=== PATIENT | male | born 1970 | race Caucasian/White ===

== ENCOUNTER 2018-04-18 11:47 | Emergency (ER) | payer OTHER ==
[~2018-04-18] VITALS: Ht 185.4 cm; Wt 90.7 kg
--- NOTE | 2018-04-18 11:54 | ED UPPER/LOWER EXTREMITY COMPL ---
History of Present Illness General Chief Complaint: Lower Extremity Problems Stated Complaint: L KNEE PAIN W/ SWELLING Source: patient Exam Limitations: no limitations Vital Signs & Intake/Output Vital Signs & Intake/Output Vital Signs Date Time Temp Pulse Resp B/P B/P Pulse O2 O2 Flow FiO2 Mean Ox Delivery Rate 04/18 1339 98.6 80 18 164/80 100 04/18 1152 97.6 96 20 151/95 98 Room Air Allergies Coded Allergies: No Known Allergies (04/18/18) Reconcile Medications Meloxicam (Mobic) 15 MG TABLET 1 TAB PO DAILY PAIN Prednisone (Deltasone) 20 MG TABLET 1 TAB PO DAILY BURSITIS Triage Note: STATES HE WOKE UP ON WEDNESDAY WITH SWOLLEN LEFT KNEE. PT DENIES INJURY. DENIES WORKING OUTSIDE OR TICK BITE. 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 yes Onset: Abrupt Duration: day(s):, constant Timing: recent history Severity: moderate, severe Pain/Injury Location: Left: Knee. Method of Injury: unknown No Modifying Factors: none HPI: 48-year-old male comes into the emergency room for evaluation of left knee pain and swelling. Patient reports that he has had it for couple days. Denies any trauma that he can think of. Comes in for further evaluation. Denies any fever chills vomiting. (Guevara Florez) Past History Travel History Traveled to [place] past 21 day No Medical History Any Pertinent Medical History? none Surgical History Surgical History: non-contributory Psychosocial History What is your primary language Kyrgyz Tobacco Use: Current Daily Use Daily Tobacco Use Amount/Type: => 5 Cigarettes daily ETOH Use: occasional use Illicit Drug Use: denies illicit drug use Family History Hx Contributory? No (Guevara Florez) Review of Systems Review of Systems Constitutional: Reports: no symptoms. EENTM: Reports: no symptoms. Respiratory: Reports: no symptoms. Cardiovascular: Reports: no symptoms. Gastrointestinal/Abdominal: Reports: no symptoms. Genitourinary: Reports: no symptoms. Musculoskeletal: Reports: see HPI. Skin: Reports: no symptoms. Neurological/Psychological: Reports: no symptoms. Hematologic/Endocrine: Reports: no symptoms. Immunological: Reports: no symptoms. All Other Systems: Reviewed and Negative (Guevara Florez) Physical Exam Physical Exam General Appearance: well developed/nourished, mild distress Head: atraumatic Eyes: Bilateral: normal appearance. Ears, Nose, Throat: normal ENT inspection, hearing grossly normal Neck: normal inspection Cardiovascular/Respiratory: no respiratory distress Back: normal inspection Knee Left: joint effusion, soft tissue tenderness, limited range of motion Neurologic/Tendon: normal sensation, normal motor functions, normal tendon functions, responds to pain, no evidence tendon injury, no pulse deficit Skin: intact, normal color, warm/dry (Theo GREGORY,Guevara) Progress Differential Diagnosis: contusion, dislocation, fracture, septic arthritis, sprain, tendon injury Plan of Care: Orders Procedure Date/time Status XRY-KNEE COMPLETE LEFT 04/18 1152 Active Diagnostic Imaging: Viewed by Me: Radiology Read. Discussed w/RAD: Radiology Read. Radiology Impression: PATIENT: DANDRE YOUSSEF PRESENT AGE: 48 PATIENT ACCOUNT NO: [id number] : 71 LOCATION: [facility] ORDERING PHYSICIAN: Guevara GREGORY SERVICE DATE: 04/18/18 EXAM TYPE : RAD - XRY-KNEE COMPLETE LEFT EXAMINATION: XR KNEE, LEFT CLINICAL INFORMATION: Left knee pain and swelling COMPARISON: None TECHNIQUE: Four views of the left knee. FINDINGS: Alignment is normal. The joint spaces are maintained. No fracture or subluxation. No evidence of osteoarthritis or intra-articular osteochondral body. Wnpny-cm-[id number] sized joint effusion. No osseous erosion or periostitis. The soft tissues appear mildly swollen in the prepatellar region. IMPRESSION: 1. No acute fracture or malalignment. 2. Mild soft tissue swelling in the prepatellar region. Prepatellar bursitis is possible. 3. Nonspecific knee joint effusion. DICTATED BY: Juan Jimenez MD DATE/TIME DICTATED:04/18/181243 DANCE CHOREOGRAPHER:JHOAN DATE/TIME TRANSCRIBED:1243 CONFIDENTIAL, DO NOT COPY WITHOUT APPROPRIATE AUTHORIZATION. < Electronically signed in Other Vendor System> SIGNED BY: Juan Jimenez MD 04/18/18 9495 (Guevara Florez) Departure Departure Disposition: HOME OR SELF CARE Condition: Stable Clinical Impression Primary Impression: Bursitis of left knee Referrals: Terry RODRIGUEZ,Vitor Page (PCP/Family) Torie Serna MD Additional Instructions: Ice. Compression. Take prednisone and meloxicam as prescribed. Return if any concerns worsening symptoms. Please go over all results of today's visit with your primary care doctor. Contact your primary care doctor to let them know you were here in the emergency room. There may be nonspecific findings which may not be related to your visit today here in the emergency room but may require further evaluation and chronic monitoring by your primary care doctor. If you had a laceration today the chance of foreign body always remains. You should follow-up with your primary care doctor for recheck in 3-5 days for a wound check. If you had an x-ray done there is a chance that a fracture could have been missed on initial read and you should follow-up with your primary care doctor for repeat x-rays if symptoms persist. If your blood pressure was elevated here in the emergency room please have rechecked by [facility] primary care doctor within the next 48. If you were prescribed a narcotic here in the emergency room or any type of controlled substances you're not allowed to drive while taking this medication or operate any type of heavy machinery. Narcotics can make you feel lightheaded dizziness nausea and can cause constipation. You may need to picker tender a stool softener. Thank you for choosing [facility] emergency room. Please return to the emergency room immediately if you have any other concerns worsening of symptoms. Departure Forms: Customer Survey General Discharge Information Prescriptions: Current Visit Scripts Prednisone (Deltasone) 1 TAB PO DAILY #5 TAB Meloxicam (Mobic) 1 TAB PO DAILY #30 TAB (Guevara Florez) PA/PATTERN DATA OPERATOR Co-Sign Statement Statement: ED Attending supervision documentation- [] I saw and evaluated the patient. I have also reviewed all the pertinent lab results and diagnostic results. I agree with the findings and the plan of care as documented in the PA's/PATTERN DATA OPERATOR's documentation. [X] I have reviewed the ED Record and agree with the PA's/PATTERN DATA OPERATOR's documentation. [] Additions or exceptions (if any) to the PAs/PATTERN DATA OPERATOR's note and plan are summarized below: [] (Jong Schumacher DO) Procedures Splinting Location: left knee Manual Alignment Performed: No Pre-Made Type: Adam wrap Splint Applied By: splint applied by me Pre-Proc Neuro Vasc Exam: normal Post-Proc Neuro Vasc Exam: normal (Guevara Florez)
--- NOTE | 2018-04-18 12:51 | RADIOLOGY REPORT ---
EXAMINATION: XR KNEE, LEFT CLINICAL INFORMATION: Left knee pain and swelling COMPARISON: None TECHNIQUE: Four views of the left knee. FINDINGS: Alignment is normal. The joint spaces are maintained. No fracture or subluxation. No evidence of osteoarthritis or intra-articular osteochondral body. Rbook-gk-fzpszvmt sized joint effusion. No osseous erosion or periostitis. The soft tissues appear mildly swollen in the prepatellar region. IMPRESSION: 1. No acute fracture or malalignment. 2. Mild soft tissue swelling in the prepatellar region. Prepatellar bursitis is possible. 3. Nonspecific knee joint effusion.
[2018-04-18 13:39] VITALS: BP 164/80
[2018-04-18] MEDS ORDERED: MOBIC15 M1 PO (13:42)
[2018-04-18] MEDS ORDERED: DELTASONE20 MG PO (13:42)
== END 2018-04-18 13:50 ==
LOC: ERH 11:47
DX: M70.52 Other bursitis of knee, left knee (principal); M25.462 Effusion, left knee; F17.210 Nicotine dependence, cigarettes, uncomplicated
CPT/HCPCS: 73562-LT